=== PATIENT | male | born 1990 | race Caucasian/White ===

== ENCOUNTER 2016-04-13 11:02 | Emergency (ER) | payer SELFPAY ==
[~2016-04-13] VITALS: Ht 182.9 cm; Wt 210.0 kg
[2016-04-13 11:05] VITALS: BP 155/97; PULSE 95; RESP 15; TEMP 98.1; O2SAT 96
--- NOTE | 2016-04-13 11:33 | PD ---
HPI Chief Complaint: Musculoskeletal Complaint Time Seen by Provider: 11:15 Travel History International Travel<30 days: No Contact w/Intl Traveler<30days: No Traveled to known affect area: No History of Present Illness HPI 25-year-old male coming in stating a left knee injury 1 week ago yesterday. Patient states he was skateboarding and came down with his left knee fully extended and jammed his knee. Patient has had pain and swelling in the left knee with decreased range of motion secondary to pain and swelling for the last week. Patient has been using a cane taking ibuprofen with improvement in the swelling just since yesterday. Patient denies numbness, tingling, or weakness. Patient states the pain was 10 over 10 when he first injured it, But now is about a 5/10. Patient has no previous knee injury. He has no known drug allergies. [facility] Social History Alcohol Use: Yes Tobacco Use: No Substance Use: No Allergies-Medications (Allergen,Severity, Reaction): Coded Allergies: No Known Allergies (Unverified , 04/13/16) Review of Systems Except as stated in HPI: all other systems reviewed are Neg General / Constitutional: No: Fever Eyes: No: Visual changes HENT: No: Headaches Cardiovascular: No: Chest Pain or Discomfort Respiratory: No: Shortness of Breath Gastrointestinal: No: Abdominal Pain Genitourinary: No: Dysuria Musculoskeletal: Positive: Arthralgias, Limited ROM, Pain (see history of present illness.) Skin: No Rash Neurologic: No: Weakness Psychiatric: No: Depression Endocrine: No: Polydipsia Hematologic/Lymphatic: No: Easy Bruising Physical Exam Narrative GENERAL: Patient appears no acute distress. SKIN: Warm and dry. Normal color. Normal turgor. No abrasions or ecchymosis noted. HEAD: Atraumatic. Normocephalic. EYES: Pupils equal and round. No scleral icterus. No injection or drainage. ENT: No nasal bleeding or discharge. Mucous membranes pink and moist. Pharynx is clear. NECK: Trachea midline. Neck is supple nontender. CARDIOVASCULAR: Regular rate and rhythm. No murmurs appreciated RESPIRATORY: No accessory muscle use. Clear to auscultation. Breath sounds equal bilaterally. MUSCULOSKELETAL: Extremities without clubbing, cyanosis, or edema. No obvious deformities. Left knee actually looks fairly normal with mild effusion. Patient has negative laxity of the left knee with varus and valgus stressors, and negative drawer test and Luis A's test as well. Patient has generalized discomfort with palpation along medial and lateral joint lines. NEUROLOGICAL: Awake and alert. No obvious cranial nerve deficits. Motor grossly within normal limits. Five out of 5 muscle strength in the arms and legs limited only by pain. Normal speech. PSYCHIATRIC: Appropriate mood and affect; insight and judgment normal. Data Data Last Documented VS Vital Signs Date Time Temp Pulse Resp B/P Pulse Ox O2 Delivery O2 Flow Rate FiO2 04/13/16 11:05 98.1 95 15 155/97 96 MDM Medical Decision Making Medical Screen Exam Complete: Yes Emergency Medical Condition: No Differential Diagnosis Left knee sprain. Cartilage tear. Ligamental tear. Fracture. Narrative Course A medical screening exam was performed: At the time of evaluation the presenting medical condition was determined not to be of an emergent nature. The patient was given the option of receiving additional care, but declined. Patient was given options for additional community resources from which to obtain care. The Patient Has Been advised to seek medical attention for their presenting complaint. The patient has been advised to return to the ER at any time if an emergent condition develops. Condition: Stable Fede Da Silva Apr 13, 2016 11:33
== END 2016-04-13 11:43 | disposition left against medical advice (07) ==
LOC: NEPB 11:02
DX: M25.562 Pain in left knee (principal)
CPT/HCPCS: 99281